=== PATIENT | male | born 1970 | race Two or more races ===

== ENCOUNTER 2020-04-16 14:00 | Inpatient (IN) | payer OTHER ==
[~2020-04-16] VITALS: Ht 180.3 cm; Wt 125.6 kg
== END 2020-04-20 11:44 | disposition home or self-care (01) | DRG 331 ==
LOC: O/R 04-17 09:34 → SURH 04-17 14:00
PROVIDERS: ADMIT Colon & Rectal Surgery; ATTEND Colon & Rectal Surgery
PROC: 0DBN4ZZ Excision of Sigmoid Colon, Percutaneous Endoscopic Approach (ICD-10-PCS; 2020-04-17)
PROC: 0DJD8ZZ Inspection of Lower Intestinal Tract, Via Natural or Artificial Opening Endoscopic (ICD-10-PCS; 2020-04-17)
PROC: 0DBN4ZZ Excision of Sigmoid Colon, Percutaneous Endoscopic Approach (ICD-10-PCS; principal; 2020-04-17 16:15)
DX: K57.20 Diverticulitis of large intestine with perforation and abscess without bleeding (principal)

== ENCOUNTER 2020-05-10 10:48 | Emergency (ER) | payer OTHER ==
[~2020-05-10] VITALS: Ht 180.3 cm; Wt 122.0 kg
== END 2020-05-11 00:03 | disposition home or self-care (01) ==
LOC: ER 10:48
DX: K91.89 Other postprocedural complications and disorders of digestive system (principal); A09 Infectious gastroenteritis and colitis, unspecified; Y83.8 Other surgical procedures as the cause of abnormal reaction of the patient, or of later complication, without mention of misadventure at the time of the procedure